=== PATIENT | female | born 1950 | race Caucasian/White ===

== ENCOUNTER → 2016-08-25 | Outpatient (CLI) | payer MEDICARE, BC ==
[~2016-08-25] MED LIST: AMOXICILLIN875 MG PO; ATENOLOL100 MG PO; COLACE 100100 MG/CAP PO; COUMADIN5 MG PO; HCTZ 25MG TAB25 MG PO; JANUVIA 100MG100 MG PO; JANUVIA25 MG PO; NORCO 325 MG-51 TAB PO; NORCO 325 MG-7.1 TAB PO; RELAFEN 50500 MG/TAB PO; TENORMIN100 MG PO; ULTRAM 50MG TAB50 MG PO
== END ==
LOC: COL.VAS 13:49
DX: M79.605 Pain in left leg (principal); M79.89 Other specified soft tissue disorders; Z86.711 Personal history of pulmonary embolism

== ENCOUNTER 2021-03-25 10:48 | Outpatient (CLI) | payer MEDICARE, BC ==
[2021-03-25] VITALS (7 sets, daily range): BP systolic 141–172; BP diastolic 62–71; PULSE 59–67; TEMP 99.7
[2021-03-25] MEDS ORDERED: GLUCOPHAGE XR500 M1 PO (11:40)
[2021-03-25] MEDS ORDERED: ZESTRIL30 MG PO (11:40)
[2021-03-25] MEDS ORDERED: ZOCOR 20MG20 MG PO (11:41)
[2021-03-25] MEDS ORDERED: GLUCOTROL 5M5 MG/TAB PO (11:41)
[2021-03-25] MEDS ORDERED: ACTOS 15MG TAB15 MG PO (11:42)
== END 2021-03-25 13:00 | disposition home or self-care (01) ==
LOC: EUO 10:48
DX: U07.1 COVID-19 (principal)
CPT/HCPCS: Q0244

== ENCOUNTER 2021-04-08 11:29 | Emergency (ER) | payer MEDICARE, BC ==
[~2021-04-08] VITALS: Ht 165.1 cm; Wt 96.8 kg
[~2021-04-08 11:29] MED LIST changes: +ACTOS 15MG TAB15 MG PO; +GLUCOPHAGE XR500 M1 PO; +GLUCOTROL 5M5 MG/TAB PO; +ZESTRIL30 MG PO; +ZOCOR 20MG20 MG PO
[2021-04-08 11:36] VITALS: TEMP 98.5
[2021-04-08] MEDS ORDERED: ALDACTONE 25MG25 M1 PO (11:44)
[2021-04-08 12:11] LABS: BASO % 0.5 % (0.0-2.0); EOS # 0.1 (0.0-0.7); EOS % 0.8 % (0-4.0); GRAN # 5.5 (1.4-6.5); GRAN % 69.5 % (42.2-75.2); HEMATOCRIT 46.6 % (37.0-47.0); HEMOGLOBIN 15.2 g/dl (12.5-16.0); LYMPH # 1.8 (1.2-3.4); LYMPH % 22.2 % (20.0-51.0); MEAN CELL VOLUME 89 fl (80.0-100.0); MEAN CORPUSCULAR HEMOGLOBIN 29 pg (27.0-31.0); MEAN CORPUSCULAR HGB CONC 33 g/dl (33.0-37.0); MEAN PLATELET VOLUME 9.6 fl (7.4-10.4); MONO # 0.5 (0.1-0.6); MONO % 6.1 % (1.7-9.3); PLATELET COUNT 266 K/mm3 (130-400); PROTHROMBIN TIME 11.6 SECONDS (9.7-12.8); RED BLOOD COUNT 5.21 M/mm3 (4.10-5.30); REDCELL DISTRIBUTION WIDTH-CV 13.4 % (11.5-14.5)
[2021-04-08 12:15] LABS: ALANINE AMINOTRANSFERASE 20 U/L (4-34); ALKALINE PHOSPHATASE 78 U/L (50-136); ANION GAP 6 mmol/L (7-16); AST,SGOT 25 U/L (15-37); BILIRUBIN,TOTAL 0.4 mg/dL (0.0-1.0); BLOOD UREA NITROGEN 10 mg/dL (7-17); CALCIUM 9.3 mg/dL (8.4-10.2); CARBON DIOXIDE 32 mmol/L (22-30); CHLORIDE 101 mmol/L (98-107); CREATININE, serum 0.55 (0.52-1.25); GLUCOSE 121 mg/dL (74-106); POTASSIUM 3.9 mmol/L (3.4-5.0); SODIUM 139 mmol/L (137-145); TOTAL PROTEIN 7.5 gm/dL (6.4-8.2)
[2021-04-08 12:28] LABS: TROPONIN-I < 0.012 ng/mL (0.000-0.035)
[2021-04-08 12:50] LABS: TSH w REFLEX 1.342 uIU/mL (0.350-4.940)
[2021-04-08 15:14] VITALS: BP 144/69; PULSE 80
== END 2021-04-08 15:15 | disposition home or self-care (01) ==
LOC: COL.ER 11:29
PROVIDERS: Family Medicine
DX: I48.20 Chronic atrial fibrillation, unspecified (principal); I10 Essential (primary) hypertension; E11.9 Type 2 diabetes mellitus without complications; Z86.16 Personal history of COVID-19; Z79.84 Long term (current) use of oral hypoglycemic drugs; Z79.899 Other long term (current) drug therapy
CPT/HCPCS: J1644